=== PATIENT | male | born 1955 | race Caucasian/White ===

== ENCOUNTER 2024-09-04 14:00 | Inpatient (IN) | payer MEDICARE, OTHER ==
[~2024-09-04] VITALS: Ht 182.9 cm; Wt 104.3 kg
[2024-09-04 02:15] VITALS: BP 90/53; TEMP 97.6; O2SAT 96
[2024-09-04] MEDS: IV NORMAL SALINE 1000 ML BAG IV ONE (14:33)
[2024-09-04] MEDS ORDERED: KETOROLAC TROMETHAMINE 15 MG INJ ONE (14:37)
[2024-09-04] MEDS ORDERED: METOCLOPRAMIDE HCL 10 MG/2 ML VIAL ONE (14:37)
[2024-09-04 14:39] LABS: BASOPHILS % (AUTO) 0.4 % (0.0-2.0); EOSINOPHILS # (AUTO) 0.2 K/uL (0.0-0.7); EOSINOPHILS % (AUTO) 2.3 % (0.0-7.0); HEMATOCRIT 33.8 % (36.7-47.1); HEMOGLOBIN 11.4 g/dL (12.5-16.3); LYMPHOCYTES # (AUTO) 1.9 K/uL (0.8-4.8); LYMPHOCYTES % (AUTO) 20.9 % (20.5-51.5); MEAN CORPUSCULAR HEMOGLOBIN 31.8 uug (23.8-33.4); MEAN CORPUSCULAR HGB CONC 34 g/dL (32.5-36.3); MEAN CORPUSCULAR VOLUME 94.5 fL (73.0-96.2); MONOCYTES # (AUTO) 0.7 K/uL (0.1-1.30); NEUTROPHILS # (AUTO) 6.5 K/uL (1.8-8.9); NEUTROPHILS % (AUTO) 69.4 % (38.5-71.5); PLATELET COUNT (AUTO) 130 K/uL (152-348); RED BLOOD CELL COUNT(AUTO) 3.57 MIL/uL (4.06-5.63); RED CELL DISTRIBUTION WIDTH 14.2 % (12.1-16.2); WHITE BLOOD COUNT (AUTO) 9.3 K/uL (3.6-10.2)
[2024-09-04] MEDS: METOCLOPRAMIDE HCL 10 MG/2 ML VIAL IV ONE (14:42)
[2024-09-04] MEDS: KETOROLAC TROMETHAMINE 15 MG INJ IVP ONE (14:42)
[2024-09-04 14:45] LABS: DIFFERENTIAL COMMENT 1
[2024-09-04 14:51] LABS: CALCIUM 7.8 mg/dL (8.5-10.1); CARBON DIOXIDE 25 mmol/L (21-32); CHLORIDE 106 mmol/L (98-107); CREATININE 1.2 mg/dL (0.6-1.3); GLUCOSE 130 mg/dL (74-106); POTASSIUM 4.6 mmol/L (3.5-5.1); SODIUM SERUM 139 mmol/L (136-145); UREA NITROGEN, BLOOD 15 mg/dL (7-18)
[2024-09-04 14:56] LABS: ALANINE AMINOTRANSFERASE 22 U/L (16-63); ALBUMIN 2.9 g/dL (3.4-5.0); ALKALINE PHOSPHATASE 53 U/L (50-136); ASPARTATE AMINOTRANSFERASE 13 U/L (15-37); BILIRUBIN,DIRECT 0.3 mg/dL (0.0-0.2); BILIRUBIN,TOTAL 1.1 mg/dL (0.2-1.0); LIPASE 31 U/L (16-77); TOTAL PROTEIN, SERUM 5.2 g/dL (6.4-8.2)
[2024-09-04 15:46] LABS: BASOPHILS % (AUTO) 0.2 % (0.0-2.0); EOSINOPHILS # (AUTO) 0.1 K/uL (0.0-0.7); EOSINOPHILS % (AUTO) 1.1 % (0.0-7.0); HEMATOCRIT 31.6 % (36.7-47.1); HEMOGLOBIN 10.7 g/dL (12.5-16.3); LYMPHOCYTES # (AUTO) 1.1 K/uL (0.8-4.8); LYMPHOCYTES % (AUTO) 12.5 % (20.5-51.5); MEAN CORPUSCULAR HEMOGLOBIN 32.1 uug (23.8-33.4); MEAN CORPUSCULAR HGB CONC 34 g/dL (32.5-36.3); MEAN CORPUSCULAR VOLUME 94.7 fL (73.0-96.2); MONOCYTES # (AUTO) 0.5 K/uL (0.1-1.30); NEUTROPHILS # (AUTO) 7.1 K/uL (1.8-8.9); NEUTROPHILS % (AUTO) 80.2 % (38.5-71.5); PLATELET COUNT (AUTO) 115 K/uL (152-348); RED BLOOD CELL COUNT(AUTO) 3.33 MIL/uL (4.06-5.63); RED CELL DISTRIBUTION WIDTH 13.9 % (12.1-16.2); WHITE BLOOD COUNT (AUTO) 8.9 K/uL (3.6-10.2)
[2024-09-04 15:49] LABS: DIFFERENTIAL COMMENT 1
[2024-09-04] MEDS: GOLYTELY 4000 ML BOTTLE PO ONE ×2 (17:06→19:08)
[2024-09-04 18:00] VITALS: BP 142/78; TEMP 97.2; O2SAT 97
[2024-09-04 18:19] VITALS: BP 106/74; TEMP 97.7; O2SAT 98
[2024-09-04] MEDS ORDERED: FOLI0.4T6 PO (18:57)
[2024-09-04] MEDS ORDERED: TAMS-3 PO (18:57)
[2024-09-04] MEDS ORDERED: ASPI81TA31 PO (18:57)
[2024-09-04] MEDS ORDERED: ROSU40TA PO (18:57)
[2024-09-04] MEDS ORDERED: OMEP20CA15 PO (18:57)
[2024-09-04] MEDS ORDERED: CHOL200013 (18:57)
[2024-09-04] MEDS ORDERED: LISI10TA29 PO (18:57)
[2024-09-04] MEDS ORDERED: UBID100C13 PO (18:57)
[2024-09-04] MEDS ORDERED: METO25TA6 PO (18:57)
[2024-09-04] MEDS ORDERED: CYAN500L PO (18:57)
[2024-09-04] MEDS ORDERED: MAGN200T5 PO (18:57)
[2024-09-04] MEDS ORDERED: TADA5TAB2 PO (18:57)
[2024-09-04] MEDS ORDERED: RIVA20TA PO (18:57)
[2024-09-04] MEDS: IV NS 1000 ML 1,000 ML IV PRN (20:23)
[2024-09-04] MEDS: ONDANSETRON 4 MG/2 ML VIAL IV PRN (21:15)
[2024-09-04] MEDS: METOCLOPRAMIDE HCL 10 MG/2 ML VIAL IV PRN (22:13)
[2024-09-04] MEDS: MORPHINE SULFATE 2 MG/1 ML DISP.SYRIN IV PRN (23:11)
[2024-09-05 00:34] LABS: BASOPHILS % (AUTO) 0.2 % (0.0-2.0); EOSINOPHILS # (AUTO) 0.1 K/uL (0.0-0.7); HEMATOCRIT 35.6 % (36.7-47.1); HEMOGLOBIN 11.8 g/dL (12.5-16.3); LYMPHOCYTES # (AUTO) 2.5 K/uL (0.8-4.8); LYMPHOCYTES % (AUTO) 18.3 % (20.5-51.5); MEAN CORPUSCULAR HEMOGLOBIN 31.2 uug (23.8-33.4); MEAN CORPUSCULAR HGB CONC 33 g/dL (32.5-36.3); MEAN CORPUSCULAR VOLUME 93.8 fL (73.0-96.2); MONOCYTES # (AUTO) 1.1 K/uL (0.1-1.30); MONOCYTES % (AUTO) 7.8 % (0.0-11.0); NEUTROPHILS # (AUTO) 10.1 K/uL (1.8-8.9); NEUTROPHILS % (AUTO) 72.7 % (38.5-71.5); PLATELET COUNT (AUTO) 137 K/uL (152-348); RED BLOOD CELL COUNT(AUTO) 3.79 MIL/uL (4.06-5.63); RED CELL DISTRIBUTION WIDTH 13.6 % (12.1-16.2); WHITE BLOOD COUNT (AUTO) 13.9 K/uL (3.6-10.2)
[2024-09-05 00:38] LABS: DIFFERENTIAL COMMENT 1
[2024-09-05] MEDS ORDERED: PROPOFOL 200 MG/20 ML BOTTLE ONE (01:45)
[2024-09-05 04:16] VITALS: BP 130/63; TEMP 98.1; O2SAT 96
[2024-09-05] MEDS ORDERED: EPINEPHRINE 1:10,000 1 MG/10 ML DISP.SYRIN ONE (05:09)
[2024-09-05 07:02] LABS: BASOPHILS % (AUTO) 0.2 % (0.0-2.0); EOSINOPHILS # (AUTO) 0.1 K/uL (0.0-0.7); EOSINOPHILS % (AUTO) 0.6 % (0.0-7.0); HEMATOCRIT 31.6 % (36.7-47.1); LYMPHOCYTES # (AUTO) 1.2 K/uL (0.8-4.8); LYMPHOCYTES % (AUTO) 13.6 % (20.5-51.5); MEAN CORPUSCULAR HEMOGLOBIN 32.6 uug (23.8-33.4); MEAN CORPUSCULAR HGB CONC 35 g/dL (32.5-36.3); MEAN CORPUSCULAR VOLUME 93.9 fL (73.0-96.2); MONOCYTES # (AUTO) 0.6 K/uL (0.1-1.30); MONOCYTES % (AUTO) 6.6 % (0.0-11.0); PLATELET COUNT (AUTO) 120 K/uL (152-348); RED BLOOD CELL COUNT(AUTO) 3.36 MIL/uL (4.06-5.63); WHITE BLOOD COUNT (AUTO) 8.9 K/uL (3.6-10.2)
[2024-09-05 07:22] LABS: MAGNESIUM 1.5 mg/dL (1.8-2.4); PHOSPHOROUS 3.7 mg/dL (2.5-4.9); POTASSIUM 4.5 mmol/L (3.5-5.1)
[2024-09-05 07:27] LABS: DIFFERENTIAL COMMENT 1
[2024-09-05] MEDS: PANTOPRAZOLE SODIUM 40 MG VIAL IV SCH (09:01)
[2024-09-05 09:05] VITALS: BP 125/68; TEMP 98.2; O2SAT 96
[2024-09-05] MEDS: MAGNESIUM SULFATE/D5W 100 ML IV SCH (10:44)
[2024-09-05 12:04] VITALS: BP 124/72; TEMP 98.1; O2SAT 96
[2024-09-05 16:15] VITALS: BP 115/68; TEMP 98.3; O2SAT 97
== END 2024-09-05 17:20 | disposition home or self-care (01) | DRG 920 ==
LOC: ER 14:00 → TELE3 17:54
PROC: 0DJD8ZZ Inspection of Lower Intestinal Tract, Via Natural or Artificial Opening Endoscopic (ICD-10-PCS; principal; 2024-09-04)
DX: K91.840 Postprocedural hemorrhage of a digestive system organ or structure following a digestive system procedure (principal); K92.1 Melena; I95.9 Hypotension, unspecified; Y84.8 Other medical procedures as the cause of abnormal reaction of the patient, or of later complication, without mention of misadventure at the time of the procedure; Y73.3 Surgical instruments, materials and gastroenterology and urology devices (including sutures) associated with adverse incidents; Y92.530 Ambulatory surgery center as the place of occurrence of the external cause; Z95.5 Presence of coronary angioplasty implant and graft; Z95.1 Presence of aortocoronary bypass graft; Z86.718 Personal history of other venous thrombosis and embolism; Z79.01 Long term (current) use of anticoagulants; I25.10 Atherosclerotic heart disease of native coronary artery without angina pectoris; Z86.711 Personal history of pulmonary embolism; Z79.899 Other long term (current) drug therapy; R14.0 Abdominal distension (gaseous); R10.84 Generalized abdominal pain
CPT/HCPCS: 36415; 71045; 83690; 83735; 84100; 84484; 85025; 85730; 86850; 86900; 86901; G0378; J0171; J1885; J2270; J2405; J2470; J2765; J3475; J3490; J7040